=== PATIENT | male | born 1945 | race Caucasian/White ===

== ENCOUNTER → 2018-10-30 | Outpatient (CLI) | payer MEDICARE | END | disposition home or self-care (01) | LOC: PCVCCLINIC 14:30 | PROVIDERS: ATTEND Internal Medicine | DX: I49.3 Ventricular premature depolarization (principal); I51.7 Cardiomegaly; R94.31 Abnormal electrocardiogram [ECG] [EKG]; R03.0 Elevated blood-pressure reading, without diagnosis of hypertension; M19.90 Unspecified osteoarthritis, unspecified site | CPT/HCPCS: 93005; G0463 ==

== ENCOUNTER → 2018-11-18 | Outpatient (CLI) | payer MEDICARE ==
--- NOTE | 2018-11-18 17:15 | PCVCIMAG ---
APPROVED REPORT Study performed: 11/18/2018 13:41:15 EXAM: Comprehensive 2D, Doppler, and color-flow Echocardiogram Patient Location: Echo lab Status: routine BSA: 1.85 HR: 69 bpmBP: 140/80 mmHg Rhythm: NSR Other Information Study Quality: Good Risk Factors: Cardiac Risk Factors: HTN Indications Abnormal ECG PVC's 2D Dimensions IVSd: 1.10 (7-11mm)LVOT Diam: 25.62 (18-24mm) LVDd: 43.96 mm PWd: 1.10 (7-11mm)Ascending Ao: 35.84 (22-36mm) LVDs: 31.96 (25-40mm) Left Atrium: 44.67 (27-40mm) Aortic Root: 30.24 mm LV Single Plane 4CH: 58.05 % LV Single Plane 2CH: 58.86 % Biplane EF: 58.9 % Volumes Left Atrial Volume (Systole) Single Plane 4CH: 72.98 mLSingle Plane 2CH: 70.56 mL LA ESV Index: 38.00 mL/m2 Aortic Valve LVOT Max P.18 mmHg LVOT Max V: 1.02 m/s Mitral Valve E/A Ratio: 0.6 MV Decel. Time: 405.24 ms MV E Max John.: 0.40 m/s MV A John.: 0.66 m/s TDI E/Lateral E': 2.67E/Medial E': 0.67 Medial E' John.: 0.60 m/s Lateral E' John.: 0.15 m/s Pulmonary Valve PV Peak Gr.: 1.94 mmHg Left Ventricle The left ventricle is normal size. There is normal LV segmental wall motion. There is normal left ventricular wall thickness. Left ventricular systolic function is normal. The left ventricular ejection fraction is within the normal range. LVEF is 60-65%. Mild diastolic dysfunction is present (impaired relaxation pattern). Right Ventricle The right ventricle is normal size. The right ventricular systolic function is normal. Atria The left atrium size is normal. The right atrium size is normal. Atrial septal aneurysm Aortic Valve The aortic valve is normal in structure, trileaflet No aortic regurgitation is present. There is no aortic valvular stenosis. Mitral Valve The mitral valve is normal in structure. Trace mitral regurgitation. No evidence of mitral valve stenosis. Tricuspid Valve The tricuspid valve is normal in structure. Trace tricuspid regurgitation. Pulmonic Valve The pulmonary valve is normal in structure. There is no pulmonic valvular regurgitation. Great Vessels The aortic root is normal in size. IVC is normal in size and collapses >50% with inspiration. Pericardium There is no pericardial effusion. <Conclusion> Left ventricular systolic function is normal. There is normal LV segmental wall motion. LV wall thickness at upper limits of normal LVEF is 60-65%. Mild diastolic dysfunction The aortic valve is normal in structure, trileaflet. No aortic regurgitation or stenosis The mitral valve is normal in structure. Trace mitral regurgitation Pulmonary artey pressure could not be reliably ascertained. There is no pericardial effusion.
--- NOTE | 2018-11-18 17:19 | PCVCIMAG ---
APPROVED REPORT Patient Location: Echo lab, Treadmill stress test Room #: Stress Nurse: Cecille Garibay RN Indications: Abnormal ekg, PVC's. The patient exercised according to the Jairo for 12:41, achieving a work level of Max. Mets: 15.90. The resting heart rate of 68 bpm ronnie to a maximal heart rate of 142bpm. This value represents 95% of the maximal, age-predicted heart rate. The resting blood pressure of 140/80 mmhg, ronnie to a a maximum blood pressure of 200/72mmHg. The exercise test was stopped due to maximal effort. Resting EKG: Sinus rhythm normal tracing Stress EKG: Occasional premature ventricular complexes. No ST segment shifts diagnostic of myocardial ischemia. Conclusion 1. Maximal treadmill exercise study negative for exercise-induced ischemia. 2. Occasional ventricular ectopy. No diagnostic ischemic electrocardiographic changes. Mild hypertensive response to exercise 3. The study was associated with good exercise capacity (15.9 METS). Low Nielsen exercise score
== END | disposition home or self-care (01) ==
LOC: PCVCIMAG 13:29
PROVIDERS: ATTEND Internal Medicine
DX: I49.3 Ventricular premature depolarization (principal); R94.31 Abnormal electrocardiogram [ECG] [EKG]
CPT/HCPCS: 93017; 93306